=== PATIENT | male | born 1990 | race American Indian/Alaskan Native ===

== ENCOUNTER 2017-09-13 06:38 | Observation (INO) | payer OTHER ==
[2017-09-13] MEDS ORDERED: NACL 0.9% 1000 ML 1,000 ML IV ONE (06:49)
[2017-09-13] MEDS ORDERED: ADRENALINE P/F SUB-Q ONE (06:49)
[2017-09-13] MEDS ORDERED: PEPCID IV ONE (06:49)
--- NOTE | 2017-09-13 06:53 | Emergency Department Report ---
HPI - General Time Seen by Provider: 09/13/17 06:48 - HPI HPI: This is a 27 year-old male presents to the emergency department by EMS from home with the complaint of an allergic reaction. The patient woke up and felt itchy, felt like his face was tight and also felt some tightness in the chest. He noticed that he had developed small itchy bumps throughout the arms, chest and neck. Patient does have a history of eczema that really had been "under control" but appears to have immediately brought on an exacerbation of this as well. He received Solu-Medrol and Benadryl in route without any relief. He received a DuoNeb treatment upon arrival here that he says is providing some relief. He denies any swelling of his lips, tongue, throat, difficulty swallowing or talking. He does have a known history to peanuts and melons but says that he is very careful about being near those foods and did not consume any of that last night or this morning. He woke up with the symptoms. No recent travel or sick contacts at home. He otherwise denies any past medical history. 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 ED Past Medical Hx - Past Medical History Hx Diabetes: No Hx Asthma: Yes Hx COPD: No Hx HIV: No Additional medical history: ECZEMA - Social History Smoking Status: Never Smoker Substance Use Type: Alcohol, Marijuana - Medications Home Medications: Home Medications Medication Instructions Recorded Confirmed Last Taken Type Albuterol Sulfate [Ventolin HFA] 2 puff IH Q4H PRN 09/13/17 09/13/17 09/12/17 History Triamcinolone 0.1% [Kenalog] 1 applic TP DAILY PRN 09/13/17 09/13/17 Unknown History diphenhydrAMINE [Benadryl CAP] 25 mg PO DAILY PRN 09/13/17 09/13/17 09/12/17 History ED Review of Systems ROS: Stated complaint: ALLERGIC REACTION Other details as noted in HPI Comment: All other systems reviewed and negative Constitutional: denies: chills, fever Eyes: denies: eye pain, eye discharge, vision change ENT: denies: ear pain, throat pain Respiratory: shortness of breath Cardiovascular: edema (nonpitting swelling of face). denies: palpitations Gastrointestinal: denies: abdominal pain, nausea, diarrhea Genitourinary: denies: urgency, dysuria Musculoskeletal: denies: back pain, joint swelling, arthralgia Skin: rash, pruritus Neurological: denies: headache, weakness, paresthesias Physical Exam - Physical Exam Physical Exam: GENERAL: The patient is well-developed well-nourished. HENT: Normocephalic. Atraumatic. Patient has moist mucous membranes. Oropharynx is clear. No drooling or trismus. No swelling of the tongue or lips. EYES: Extraocular motions are intact. Pupils equal reactive to light bilaterally. NECK: Supple. Trachea is midline. CHEST/LUNGS: Clear to auscultation. There is no respiratory distress noted. HEART/CARDIOVASCULAR: Regular. There is no tachycardia. There is no murmur. ABDOMEN: Abdomen is soft, nontender. Patient has normal bowel sounds. There is no abdominal distention. SKIN: Patient has a dry rash to the face and arms and appears consistent with eczema. Around this he also has some small dry papules and multiple excoriations consistent with his complaint of pruritus. He has some urticarial- like lesions around the neck. His face is swollen but nonpitting but this includes lips. NEURO: The patient is awake, alert, and oriented. The patient is cooperative. The patient has no focal neurologic deficits. The patient has normal speech. Cranial nerves II through XII grossly intact. MUSCULOSKELETAL: There is no tenderness or deformity. There is no limitation range of motion. There is no evidence of acute injury. ED Medical Decision Making - Lab Data Result diagrams: 09/13/17 07:00 09/13/17 07:00 - EKG Data -: EKG Interpreted by [facility] EKG shows normal: sinus rhythm, axis, intervals, QRS complexes, ST-T waves Rate: normal - EKG Data When compared to previous EKG there are: previous EKG unavailable Interpretation: normal EKG - Medical Decision Making The patient does not appear to be an anaphylactic distress. However despite IV fluids, steroids, Pepcid, Benadryl and subcutaneous epinephrine, patient says he is not feeling any better, but not feeling any worse. Since there was such a sudden change between when he went to sleep last night and waking up today, without appropriate improvement or resolution, patient will be admitted to the hospital for further evaluation and treatment. We will start off as an observational stay and he has been accepted for admission by the hospitalist, Dr. Arellano, who has asked for bridging orders to be placed. - Differential Diagnosis angioedema, anaphylaxis, complement deficiency, dermatitis, eczema Critical Care Time: No Critical care attestation.: If time is entered above; I have spent that time in minutes in the direct care of this critically ill patient, excluding procedure time. ED Disposition Clinical Impression: Skin eruption Angioedema Qualifiers: Encounter type: initial encounter Qualified Code(s): T78.3XXA - Angioneurotic edema, initial encounter Allergic reaction Qualifiers: Encounter type: initial encounter Qualified Code(s): T78.40XA - Allergy, unspecified, initial encounter Hypertension Qualifiers: Hypertension type: essential hypertension Qualified Code(s): I10 - Essential ( primary) hypertension Disposition: 09 OP ADMIT IP TO THIS HOSP Is pt being admited?: Yes Condition: Stable Instructions: Hypertension (ED) Referrals: IFEANYI FERNANDEZ MD [Primary Care Provider] - 3-5 Days Time of Disposition: 13:13
--- NOTE | 2017-09-13 07:35 | XRay Report ---
FINAL REPORT EXAM: XR CHEST 1V AP HISTORY: SOB. TECHNIQUE: A single frontal portable radiograph of the chest was obtained. No prior studies are available for comparison. FINDINGS: The cardiac silhouette and mediastinum are within normal limits. The lungs are clear bilaterally, without focal infiltrate or effusion. There is no pneumothorax. No significant osseous abnormalities are identified. IMPRESSION: No active disease seen in the chest.
[2017-09-13 07:37] LABS: Hematocrit 38.1 % (35.5-45.6); Hemoglobin 12.7 gm/dl (11.8-15.2); Mean Corpuscular HGB Conc 33 % (32-34); Mean Corpuscular Hemoglobin 31 pg (28-32); Mean Corpuscular Volume 93 fl (84-94); Platelet Count 270 K/mm3 (140-440); Red Cell Distribution Width 13.1 % (13.2-15.2)
[2017-09-13] MEDS ORDERED: ADRENALIN ONE (07:46)
[2017-09-13 07:53] LABS: BUN/Creatinine Ratio 11; Blood Urea Nitrogen 11 mg/dL (9-20); Hemolysis Index 8
[2017-09-13 08:48] LABS: Total Cells Counted 100
[2017-09-13 08:49] LABS: Anisocytosis 1+; Helmet Cells Rare; Ovalocytes Few; Stomatocytes Few
--- NOTE | 2017-09-13 13:19 | Event Note ---
Date: 09/13/17 Patient seen and evaluated Mild Angioedema Can be treatd as out patient. Patient discharged from ER In patient orders cancelled No H and P Prescriptions given for steroids pepcid and Atarax
[2017-09-13 13:50] VITALS: BP 152/81
== END 2017-09-13 14:30 | disposition home or self-care (01) ==
LOC: ED 06:38 → 3A 12:56
PROVIDERS: ADMIT Internal Medicine; ATTEND Internal Medicine
DX: T78.3XXA Angioneurotic edema, initial encounter (principal); J45.909 Unspecified asthma, uncomplicated; I10 Essential (primary) hypertension
CPT/HCPCS: 36415; 71045; 80048; 85007; 85025; 93005; 93010; 96361; 96372; 96374; 99285; G0378; J0171; J7030

== ENCOUNTER 2018-03-04 13:09 | Emergency (ER) | payer SELFPAY ==
--- NOTE | 2018-03-04 15:15 | Emergency Department Report ---
ED General Adult HPI - General Chief complaint: Eye Problems Stated complaint: BODY RASH, EYE IRRITATION Time Seen by Provider: 03/04/18 14:46 Source: patient Mode of arrival: Ambulatory Limitations: No Limitations - History of Present Illness Initial comments: Patient is a 27-year-old [place] male who has a past history of advanced eczema who states he's having eczema flareup for the last week. Patient has a very dry itchy skin diffusely. Patient also is complaining of some eye irritation with some yellow drainage. Patient denies any fevers chills nausea vomiting diarrhea at this time. - Related Data Home Medications Medication Instructions Recorded Confirmed Last Taken Albuterol Sulfate [Ventolin HFA] 2 puff IH Q4H PRN 09/13/17 09/13/17 09/12/17 diphenhydrAMINE [Benadryl CAP] 25 mg PO DAILY PRN 09/13/17 09/13/17 09/12/17 Previous Rx's Medication Instructions Recorded Last Taken Type Gentamicin 0.3% Ophth Soln 2 drops OP Q4H #1 bottle 03/04/18 Unknown Rx Prednisone [predniSONE 10 mg 10 mg PO .TAPER #1 tab.ds.pk 03/04/18 Unknown Rx (6-Day Pack, 21 Tabs)] Triamcinolone 0.1% [Kenalog 0.1% 1 applic TP DAILY PRN #30 g 03/04/18 Unknown Rx CREAM] Allergies Allergy/AdvReac Type Severity Reaction Status Date / Time loratadine [From Claritin] Allergy Hives Verified 09/13/17 06:50 melon Allergy Hives Verified 09/13/17 06:50 peanut Allergy Hives Verified 09/13/17 06:50 ED Review of Systems ROS: Stated complaint: BODY RASH, EYE IRRITATION Other details as noted in HPI Comment: All other systems reviewed and negative ED Past Medical Hx - Past Medical History Previous Medical History?: Yes Hx Diabetes: No Hx Asthma: Yes Hx COPD: No Hx HIV: No Additional medical history: ECZEMA - Surgical History Past Surgical History?: Yes Additional Surgical History: t/a - Social History Smoking Status: Never Smoker Substance Use Type: Alcohol, Marijuana - Medications Home Medications: Home Medications Medication Instructions Recorded Confirmed Last Taken Type Albuterol Sulfate [Ventolin HFA] 2 puff IH Q4H PRN 09/13/17 09/13/17 09/12/17 History diphenhydrAMINE [Benadryl CAP] 25 mg PO DAILY PRN 09/13/17 09/13/17 09/12/17 History Gentamicin 0.3% Ophth Soln 2 drops OP Q4H #1 bottle 03/04/18 Unknown Rx Prednisone [predniSONE 10 mg 10 mg PO .TAPER #1 tab.ds.pk 03/04/18 Unknown Rx (6-Day Pack, 21 Tabs)] Triamcinolone 0.1% [Kenalog 0.1% 1 applic TP DAILY PRN #30 g 03/04/18 Unknown Rx CREAM] ED Physical Exam - General Limitations: No Limitations General appearance: alert, in no apparent distress - Head Head exam: Present: atraumatic, normocephalic - Eye Eye exam: Present: normal appearance, conjunctival injection (with a yellow exudate) - ENT ENT exam: Present: mucous membranes moist - Neck Neck exam: Present: normal inspection - Respiratory Respiratory exam: Present: normal lung sounds bilaterally. Absent: respiratory distress - Cardiovascular Cardiovascular Exam: Present: regular rate, normal rhythm. Absent: systolic murmur, diastolic murmur, rubs, gallop - GI/Abdominal GI/Abdominal exam: Present: soft, normal bowel sounds - Rectal Rectal exam: Present: deferred - Extremities Exam Extremities exam: Present: normal inspection - Back Exam Back exam: Present: normal inspection - Neurological Exam Neurological exam: Present: alert, oriented X3 - Psychiatric Psychiatric exam: Present: normal affect, normal mood - Skin Skin exam: Present: warm, dry, intact, normal color, rash (dries scaly rash diffusely all over the patient's body including face) ED Course Vital Signs 03/04/18 13:14 Temperature 97.9 F Pulse Rate 93 H Respiratory 18 Rate Blood Pressure 137/81 O2 Sat by Pulse 97 Oximetry ED Medical Decision Making - Medical Decision Making Patient is exhibiting a very extensive eczema. Patient started on triamcinolone given a Medrol Dosepak. Patient also appears to have bacterial conjunctivitis as well and this will be treated. Critical care attestation.: If time is entered above; I have spent that time in minutes in the direct care of this critically ill patient, excluding procedure time. ED Disposition Clinical Impression: Bacterial conjunctivitis Eczema Qualifiers: Eczema type: unspecified Qualified Code(s): L30.9 - Dermatitis, unspecified Disposition: DC-01 TO HOME OR SELFCARE Is pt being admited?: No Does the pt Need Aspirin: No Condition: Stable Instructions: Eczema (ED), Conjunctivitis (ED) Prescriptions: Gentamicin 0.3% Ophth Soln 2 drops OP Q4H #1 bottle Prednisone [predniSONE 10 mg (6-Day Pack, 21 Tabs)] 10 mg PO .TAPER #1 tab.ds.pk Triamcinolone 0.1% [Kenalog 0.1% CREAM] 1 applic TP DAILY PRN #30 g PRN Reason: Inflammation Referrals: PRIMARY CARE, [Primary Care Provider] - 3-5 Days
[2018-03-04 15:24] VITALS: BP 136/80
== END 2018-03-04 15:22 | disposition home or self-care (01) ==
LOC: ED 13:09
DX: L30.9 Dermatitis, unspecified (principal); H10.89 Other conjunctivitis; J45.909 Unspecified asthma, uncomplicated; F12.10 Cannabis abuse, uncomplicated; Z88.8 Allergy status to other drugs, medicaments and biological substances; Z91.018 Allergy to other foods; Z91.010 Allergy to peanuts
CPT/HCPCS: 99282